=== PATIENT | male | born 1950 | race Caucasian/White ===

== ENCOUNTER 2019-02-27 14:31 | Emergency (ER) | payer BC ==
--- OUTSIDE RECORDS SUMMARY | 2019-02-27 14:40 | XMS REPORT | Continuity of Care Document ---
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 Problems Active Problems Provider Date Hereditary hemochromatosis Keily Casas DO Onset: 01/22/2015 Benign prostatic hypertrophy without outflow Keily Casas DO Onset: 04/2018 obstruction Vitamin B deficiency Keily Casas DO Onset: 03/02/2018 Thrombocytopenic disorder Keily Casas DO Onset: 03/02/2018 Other nonspecific abnormal finding of lung Keily Casas DO Onset: 2017 field Social History Type Date Description Comments Sex Unknown Allergies, Adverse Reactions, Alerts Description No Known Drug Allergies Medications Active Medications SIG Qnty Indications Ordering Provider Date Allopurinol take 1 tab daily Unknown 300mg Tablets Metoprolol Succinate ER take 1 daily Unknown 100mg Tablets ER 24HR Lantus 100 unites daily Unknown 100Unit/ML Solution Metformin HCL 1 by mouth am Unknown 750mg Tablets and 1 by mouth pm Rosuvastatin Calcium take 1 tablet by Unknown 5mg mouth once daily Tablets Trulicity once weekly Maria Del Rosario Perez MD 0.75mg/0.5ML Solution Pen-Inject Losartan 1 tab daily Maria Del Rosario Perez MD Potassium/Hydrochloroth iazide 100-25mg Tablets Medications Administered in Office Medication SIG Qnty Indications Ordering Provider Date Vitamin B12 Injection 1000 Keily Casas DO 01/24/2019 mcg/Ml Injection Vitamin B12 Injection 1000 Keily Casas, 03/02/2018 mcg/Ml Injection Immunizations Description No Information Available Vital Signs Date Vital Result Comment 01/24/2019 2:40pm BP Systolic 181 mmHg BP Diastolic 82 mmHg Body Temperature 98.0 F Heart Rate 75 /min Respiratory Rate 16 /min Weight 246.38 lb Pain Level 0 O2 % BldC Oximetry 96 % 06/07/2018 7:58am BP Systolic 159 mmHg BP Diastolic 80 mmHg Body Temperature 97.8 F Heart Rate 67 /min Respiratory Rate 16 /min Weight 250.12 lb Pain Level 0 O2 % BldC Oximetry 97 % Results Test Acquired Date Facility Test Result H/L Range Note CBS 01/16/2019 [facility] White Blood 7.0 K/uL Normal 3.4-10.5 1 W/Automated [address] [place] [address] [phone] Red Blood Count 4.45 M/uL Normal 4.20-5.80 Hemoglobin 14.8 gm/dL Normal 12.8-17.0 Hematocrit 41.0 % Normal 38.0-48.0 Mean Cell Volume 92.1 fl Normal 80.0-96.0 Mean Corpuscular HGB 33.3 pg High 27.0-33.0 Mean Corpuscular HGB Conc 36.1 g/dL High 31.7-36.0 Platelet Count 143 K/uL Low 155-360 Red Cell Distri Width SD 43.7 fl Normal 36-51 Red Cell Distri Width %CV 13.2 % Normal 11.6-15.8 Mean Platelet Volume 10.9 fl High 6.6-10.6 Neut% 68.6 % Normal 33.0-73.0 Lymph % 20.4 % Normal 20.0-42.0 Hubbard % 7.8 % Normal 0.0-10.0 Eo% 2.0 % Normal 0.0-6.6 Bas% 0.6 % Normal 0.0-1.1 Immature Grans 0.6 % Normal 0.0-5.0 NRBC % 0.0 /100WBC < 10/ 100 WBC Neut# 4.77 K/uL Normal 1.8-7.0 Lymph # 1.42 K/uL Normal 1.0-4.0 Hubbard # 0.54 K/uL Normal 0.0-0.8 Eos # 0.14 K/uL Normal 0.0-0.5 Baso # 0.04 K/uL Normal 0.0-0.1 Immature Grans Absolute 0.04 K/uL NRBC # 0.00 K/uL Iron-Tibc-%Sat 01/16/2019 [facility] Serum Iron 118 g/dL Normal 65-175 [address] [place] [address] [phone] Total Iron Binding Capacity 302 g/dL Normal 250-450 Transferrin %Saturation 39 % Normal 12-57 Laboratory test 01/16/2019 [facility] Ferritin 165 ng/mL Normal 26-388 finding [address] [place] [address] [phone] Vitamin B12 And 01/16/2019 [facility] Vitamin B12 398 pg/mL Normal 193-986 Folate [address] [place], [place] [id number] [phone] Folic Acid > 20.0 ng/mL High 3.1-17.5 Comprehensive Metabolic 01/16/2019 [facility] Glucose 344 mg/dL High 74-106 Panel [address] [place], [place] [id number] [phone] BUN 14 mg/dL Normal 7-18 Creatinine 1.0 mg/dL Normal 0.6-1.3 Glom Filtration Rate, Estimate >60 mL/min >60 If >60 mL/min >60 2 BUN/Creat 14.0 ratio Sodium 135 mmol/L Low 136-145 Potassium 4.2 mmol/L Normal 3.5-5.1 Chloride 103 mmol/L Normal 98-107 Carbon Dioxide 29 mmol/L Normal 21-32 Anion Gap 3 mEq/L Low 8-16 Calcium 9.1 mg/dL Normal 8.5-10.1 Total Protein 7.3 g/dL Normal 6.4-8.2 Albumin 3.8 g/dL Normal 3.4-5.0 Globulin 3.5 g/dL Normal 1.9-4.3 Alb/Glob 1.1 ratio Bilirubin,Total 1.3 mg/dL High 0.2-1.0 Sgot/Ast 29 U/L Normal 15-37 SGPT/Alt 40 U/L Normal 12-78 Alkaline Phosphatase 60 U/L Normal 45-117 Laboratory test 01/16/2019 [facility] Afp Tumor 2.2 ng/mL 0.0-8.3 [address] Marker,[place] [address] [phone] 1 E83.110 N20.0 N28.1 E53.9 2 Note: Persistent reduction for 3 months or more in an eGFR <60 mL/min/1.73 m2 defines CKD. Patients with eGFR values >/=60 mL/min/1.73 m2 may also have CKD if evidence of persistent proteinuria is present. The original MDRD equation for estimated GFR is not valid for patients less than 18 years of age. Additional information may be found at www.kdoqi.org. 3 [facility] [employer] Electrochemiluminescence Immunoassay (ECLIA) Values obtained with different assay methods or kits cannot be used interchangeably. Results cannot be interpreted as absolute evidence of the presence or absence of malignant disease. This test is not interpretable in females. Performed at: RN - [facility] [address] [id number] [employer] Driver Operator: Arianna Langston MD, Phone: [phone] Procedures Description No Information Available Medical Devices Description No Information Available Encounters Description No Information Available Assessments Date Code Description Provider 01/24/2019 E83.110 Hereditary hemochromatosis Keily Casas, 01/24/2019 E53.9 Vitamin B deficiency, unspecified Keily Casas, DO 01/24/2019 R91.8 Other nonspecific abnormal finding of lung Keily Casas DO field 01/24/2019 N40.0 Benign prostatic hypertrophy without outflow Keily Casas, DO obstruction 01/16/2019 E83.110 Hereditary hemochromatosis Keily Casas, DO 01/16/2019 E83.110 Hereditary hemochromatosis Oncology Nurse 01/16/2019 N20.0 Calculus of kidney Keily Casas, DO 01/16/2019 N20.0 Calculus of kidney Oncology Nurse 01/16/2019 N28.1 Cyst of kidney, acquired Keily Casas, DO 01/16/2019 N28.1 Cyst of kidney, acquired Oncology Nurse 01/16/2019 E53.9 Vitamin B deficiency, unspecified Keily Casas, 01/16/2019 E53.9 Vitamin B deficiency, unspecified Oncology Nurse Plan of Treatment Future Appointment(s):03/27/2019 3:00 pm - Oncology Nurse at Oncology [email or web address] 3:00 pm - Oncology Nurse at Oncology Office Functional Status Description No Information Available Mental Status Description No Information Available Referrals Description No Information Available
[2019-02-27 14:49] VITALS: BP 155/84
--- NOTE | 2019-02-27 14:58 | UC ---
General HPI - HPI Summary HPI Summary: 68-year-old male presents with a history of type 2 diabetes. Patient historically uses insulin 120 units per day. Patient is out of insulin. Patient called his primary care doctor who is not available for a refill today. There is no covering provider. Nurses stated that Will call and insulin tomorrow but cannot do it today. Asking for refill at this time and patient will follow up with PCP. Blood sugars have been normal and arrange for patient. No other complaints.he states it is typical hemoglobin A1c is 7.0 or around there.he states he has called his primary care office both on Wednesday and Wednesday and there is nobody to help give him his refill. He was told to come to the [facility] care - History of Current Complaint Chief Complaint: UCMedRefill Stated Complaint: MED REFILL Time Seen by Provider: 02/27/19 14:55 Hx Obtained From: Patient Pain Intensity: 0 - Allergy/Home Medications Allergies/Adverse Reactions: Allergies Allergy/AdvReac Type Severity Reaction Status Date / Time No Known Allergies Allergy Verified 02/27/19 14:44 PMH/Surg Hx/FS Hx/Imm Hx Previously Healthy: Yes Endocrine History: Diabetes, Dyslipidemia Cardiovascular History: Hypertension - Surgical History Surgical History: Yes Surgery Procedure, Year, and Place: TORN PATELLA REPAIRED - Family History Known Family History: Positive: Hypertension, Diabetes - Social History Alcohol Use: Rare Substance Use Type: None Smoking Status (MU): Former Smoker Household Exposure Type: Cigars Review of Systems All Other Systems Reviewed And Are Negative: Yes Physical Exam Triage Information Reviewed: Yes Appearance: Well-Appearing, No Pain Distress, Well-Nourished Vital Signs: Initial Vital Signs Temp 97.9 F 02/27/19 14:41 Pulse 83 02/27/19 14:41 Resp 14 02/27/19 14:41 BP 155/84 02/27/19 14:41 Pulse Ox 97 02/27/19 14:41 Vital Signs Reviewed: Yes Eye Exam: Normal ENT Exam: Normal Dental Exam: Normal Neck exam: Normal Neck: Positive: 1 Respiratory Exam: Normal Cardiovascular Exam: Normal Musculoskeletal Exam: Normal Neurological Exam: Normal Psychological Exam: Normal Skin Exam: Normal Course/Dx - Course Course Of Treatment: we'll give refill of his insulin. Patient has been compliant with his primary care doctor and checkups but doctor not available today for refill. He will help in a pinch Patient aware and agreeable to plan. - Diagnoses Provider Diagnosis: Diabetes type 2, controlled Discharge ED - Sign-Out/Discharge Documenting (check all that apply): Patient Departure All imaging exams completed and their final reports reviewed: No Studies - Discharge Plan Condition: Good Disposition: HOME Prescriptions: Insulin Glargine,Hum.rec.anlog [Lantus Solostar] 120 unit SQ DAILY #1 [email or web address] Referrals: Maria Del Rosario Perez MD [Primary Care Provider] - 1 Day Additional Instructions: per your request we will give you a small amount of insulin to give you through until you can get your typical refill by your primary care doctor - Billing Disposition and Condition Condition: GOOD Disposition: Home
== END 2019-02-27 15:12 | disposition home or self-care (01) ==
LOC: UCCORT 14:31
DX: E11.9 Type 2 diabetes mellitus without complications (principal); I10 Essential (primary) hypertension; Z87.891 Personal history of nicotine dependence
CPT/HCPCS: 99202; G0463